=== PATIENT | female | born 1965 | race Caucasian/White ===

== ENCOUNTER 2017-02-04 08:56 | Emergency (ER) | payer BC ==
[2017-02-04] MEDS ORDERED: Aspirin Low Dose CHEW TAB* 81 MG PO ONE (10:27)
[2017-02-04] MEDS ORDERED: Nitroglycerin TAB 0.4 MG* 0.4 MG TAB SL ONE (10:28)
--- NOTE | 2017-02-04 10:34 | UC ---
Respiratory Complaint HPI - HPI Summary HPI Summary: 51 yo female awoke this AM about 2 with chest pressure and dyspnea Had had cough for about 4-5 days no f/c - History of Current Complaint Chief Complaint: UCRespiratory Stated Complaint: CHEST CONGESTION TROUBLE BREATHING Time Seen by Provider: 02/04/17 09:58 Hx Obtained From: Patient Hx Last Menstrual Period: 1999 Onset/Duration: Sudden Onset, Lasting Days Timing: Constant Severity Initially: Moderate Severity Currently: Moderate Pain Intensity: 6 Pain Scale Used: 0-10 Numeric Character: Cough: Nonproductive Associated Signs And Symptoms: Positive: Dyspnea. Negative: Fever, Chills, Pleuritic Chest Pain, Wheezing, Hemoptysis, Dizziness, Calf Pain, Calf Swelling , Edema, URI, Nasal Congestion, Hoarseness, Sinus Discomfort - Allergies/Home Medications Allergies/Adverse Reactions: Allergies Allergy/AdvReac Type Severity Reaction Status Date / Time Sulfa Drugs Allergy Intermediate Rash Verified 02/04/17 09:27 Indomethacin [From Indocin] Allergy MUSCLE Verified 02/04/17 09:27 FLAYLING Benadryl at large doses Allergy Swelling Uncoded 02/04/17 09:27 Of Face,Lips,& Throat Home Medications: Home Medications Dulaglutide [Trulicity] 0.75 mg SC WEEKLY 02/04/17 [History Confirmed 02/04/17] PMH/Surg Hx/FS Hx/Imm Hx Endocrine History Of: Reports: Diabetes, Thyroid Disease Cardiovascular History Of: Reports: Cardiac Disorders - irregular heartbeat, Hypertension - ON MEDICATION FOR - Surgical History Surgical History: Yes Surgery Procedure, Year, and Place: hysterectomy 1999, [facility] , gallbladder , 2009, [facility] , bladder repair, 2007, [facility] [place] , 1992, [facility] [place] , thyroidectomy 2009, [facility] . LefT wrist ~2009 , [facility] [place]. LEFT ANKLE SURGERY-09/02/2014. removed screw from left annkle 05/2015 - Family History Known Family History: Positive: Cardiac Disease, Hypertension, Diabetes - Social History Alcohol Use: None Alcohol Amount: 1 PER MONTH Substance Use Type: None Smoking Status (MU): Former Smoker Type: Cigarettes Amount Used/How Often: 1 PPD X 6-7 YEARS Have You Smoked in the Last Year: No When Did the Patient Quit Smoking/Using Tobacco: 1988 - Immunization History Most Recent Influenza Vaccination: NO Most Recent Pneumonia Vaccination: 2014 Review of Systems Constitutional: Negative Skin: Negative Eyes: Negative ENT: Negative Respiratory: Shortness Of Breath Cardiovascular: Chest Pain Gastrointestinal: Negative Genitourinary: Negative Motor: Negative Neurovascular: Negative Musculoskeletal: Negative Neurological: Negative Psychological: Negative All Other Systems Reviewed And Are Negative: Yes Physical Exam Triage Information Reviewed: Yes Appearance: Well-Appearing, No Pain Distress, Well-Nourished Vital Signs: Initial Vital Signs Temp 98.2 F 02/04/17 09:31 Pulse 78 02/04/17 09:31 Resp 24 02/04/17 09:31 BP 136/72 02/04/17 09:31 Pulse Ox 100 02/04/17 09:31 Eyes: Positive: Conjunctiva Clear ENT: Positive: Hearing grossly normal. Negative: Nasal congestion, Nasal drainage, Trismus, Muffled/hoarse voice Neck: Positive: Supple, Nontender, No Lymphadenopathy Respiratory: Positive: Chest non-tender, Lungs clear, Normal breath sounds, Other: - increased WOB Cardiovascular: Positive: RRR, No Murmur, Pulses Normal. Negative: Tachycardia , Bradycardia Abdomen Description: Positive: Nontender. Negative: Distended Bowel Sounds: Positive: Present Musculoskeletal: Positive: Edema @ - trace Psychological Exam: Normal Skin Exam: Normal UC Diagnostic Evaluation - Laboratory O2 Sat by Pulse Oximetry: 100 - normal/not hypoxic - EKG Cardiac Rate: NL Cardiac Rhythm: Sinus: Normal Ectopy: None ST Segment: Normal Respiratory Course/Dx - Course Course Of Treatment: D/W Clifford Dan (KINJAL). to [facility] via ems - Differential Dx/Diagnosis Provider Diagnoses: chest pain of uncertain cause Discharge - Discharge Plan Condition: Guarded Disposition: TRANS [facility] FAC
[2017-02-04 10:56] VITALS: BP 165/92
== END 2017-02-04 10:55 | disposition short-term general hospital (02) ==
LOC: UCCORT 08:56
DX: R07.89 Other chest pain (principal); R06.00 Dyspnea, unspecified; Z88.2 Allergy status to sulfonamides; E11.9 Type 2 diabetes mellitus without complications; E07.9 Disorder of thyroid, unspecified; I10 Essential (primary) hypertension; Z90.49 Acquired absence of other specified parts of digestive tract; Z90.710 Acquired absence of both cervix and uterus; E89.0 Postprocedural hypothyroidism; Z87.891 Personal history of nicotine dependence
CPT/HCPCS: 99213; 99214; A9270-GY; G0463

== ENCOUNTER 2017-09-05 07:26 | Emergency (ER) | payer BC ==
[2017-09-05 07:38] VITALS: BP 129/80
--- NOTE | 2017-09-05 08:01 | UC ---
Throat Pain/Nasal Slade HPI - HPI Summary HPI Summary: Pt c/o nasal congestion, sinus pressure and pain X 4 weeks. - History of Current Complaint Chief Complaint: UCGeneralIllness Stated Complaint: SINUSES Time Seen by Provider: 09/05/17 07:56 Hx Obtained From: Patient Hx Last Menstrual Period: 1999 ?: No Onset/Duration: Gradual Onset, Lasting Weeks - 4, Still Present, Worse Since - onset Severity: Mild Cough: Nonproductive Associated Signs & Symptoms: Positive: Sinus Discomfort - Epiglottits Risk Factors Epiglottis Risk Factors: Negative - Allergies/Home Medications Allergies/Adverse Reactions: Allergies Allergy/AdvReac Type Severity Reaction Status Date / Time Indomethacin [From Indocin] Allergy Severe See Comment Verified 09/05/17 07:34 Sulfa Drugs Allergy Intermediate Rash Verified 09/05/17 07:34 Benadryl at large doses Allergy Severe Swelling Uncoded 09/05/17 07:34 Of Face,Lips,& Throat PMH/Surg Hx/FS Hx/Imm Hx Previously Healthy: Yes - Surgical History Surgical History: Yes Surgery Procedure, Year, and Place: CSECTION- 1992- [facility] [place]. [place]STERECTOMY- [place]. BLADDER REPAIR- 2007- [facility] [place]. GALLBLADDER- 2009- [facility]. RIGHT THYROIDECTOMY- [place] . LEFT WRIST- ~2009- [facility] [place]. LEFT ANKLE SURGERY-09/02/2014- [facility] [place]. SCREW REMOVAL LEFT ANKLE- 05/2015- [facility] [place] - Family History Known Family History: Positive: Cardiac Disease, Hypertension, Diabetes - Social History Occupation: Employed Full-time Lives: With Family Alcohol Use: None Alcohol Amount: 1 PER MONTH Substance Use Type: None Smoking Status (MU): Former Smoker Type: Cigarettes Amount Used/How Often: 1/2 PPD FOR 5 YRS Length of Time of Smoking/Using Tobacco: 5 YRS Have You Smoked in the Last Year: No When Did the Patient Quit Smoking/Using Tobacco: 27 YRS AGO - Immunization History Most Recent Influenza Vaccination: June 2017 Most Recent Pneumonia Vaccination: 2014 Vaccination Up to Date: Yes Review of Systems Constitutional: Fatigue Skin: Negative Eyes: Negative ENT: Sore Throat, Sinus Congestion, Sinus Pain/Tenderness Respiratory: Cough Cardiovascular: Negative Gastrointestinal: Negative Genitourinary: Negative Motor: Negative Neurovascular: Negative Musculoskeletal: Negative Neurological: Headache Psychological: Negative Is Patient Immunocompromised?: No All Other Systems Reviewed And Are Negative: Yes Physical Exam Triage Information Reviewed: Yes Appearance: Ill-Appearing Vital Signs: Initial Vital Signs Temp 98.4 F 09/05/17 07:32 Pulse 76 09/05/17 07:32 Resp 16 09/05/17 07:32 BP 129/80 09/05/17 07:32 Pulse Ox 100 09/05/17 07:32 Vital Signs Reviewed: Yes Eye Exam: Normal ENT Exam: Other ENT: Positive: TM bulging, Sinus tenderness Dental Exam: Normal Neck exam: Normal Respiratory Exam: Normal Cardiovascular Exam: Normal Musculoskeletal Exam: Normal Neurological Exam: Normal Psychological Exam: Normal Skin Exam: Normal Throat Pain/Nasal Course/Dx - Differential Dx/Diagnosis Differential Diagnosis/HQI/PQRI: Influenza, Sinusitis, URI Provider Diagnoses: sinusitis Discharge - Discharge Plan Condition: Stable Disposition: HOME Prescriptions: Amoxicillin PO (*) [Amoxicillin 875 MG (*)] 875 mg PO Q12H #20 tab Fluconazole 100 MG TAB* [Diflucan 100 MG TAB*] 100 mg PO ONCE #2 tab Patient Education Materials: Sinusitis (ED) Referrals: Sharonda Trujillo MD [Primary Care Provider] - If Needed
== END 2017-09-05 08:07 | disposition home or self-care (01) ==
LOC: UCCORT 07:26
DX: J32.9 Chronic sinusitis, unspecified (principal); Z88.2 Allergy status to sulfonamides; Z87.891 Personal history of nicotine dependence
CPT/HCPCS: 99212; G0463

== ENCOUNTER 2018-09-13 16:54 | Emergency (ER) | payer BC ==
[2018-09-13 17:32] VITALS: BP 143/89
--- NOTE | 2018-09-13 17:41 | UC ---
General HPI - HPI Summary HPI Summary: Patient presents to urgent care with her . Patient with 2 concerns 1) patient reports progressive sinus congestion postnasal drip and dental achiness for the last 4-5 days. Patient states today at settled in her chest. Patient states she's been coughing intermittently productive. Patient does have some wheezing. Patient has shortness of breath except when she has coughing paroxysms. Patient denies nausea vomiting. Patient has taken over-the -counter cough medications with little improvement. Patient states she gets sinus infections once or twice a year and this feels similar. Patient without fevers, headache, ear pain 2) patient reports erythema and discomfort to the dorsum of her right foot. Patient states she's had it for approximately 8-10 days. Patient states she gets gout although she has not had it for more than 6 years. Patient states gout is typically in her first MTP. Patient states she has discomfort with movement of her foot. Patient states she has walking with a limp. Patient's been taking Motrin with little improvement. Patient states she does have plantar fasciitis of this right foot and so sometimes once anyway. Patient does not remember trauma specifically but states she is a little bit of a clot oftentimes strict stumbles and doesn't remember. Patient without any fevers or chills. Patient is a diabetic but does not require insulin. 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 Hx Last Menstrual Period: 1999 Onset/Duration: Gradual Onset Timing: Constant Onset Severity: Moderate Current Severity: Moderate Pain Intensity: 5 - Allergy/Home Medications Allergies/Adverse Reactions: Allergies Allergy/AdvReac Type Severity Reaction Status Date / Time indomethacin [From Indocin] Allergy Severe Muscle Ache Verified 09/13/18 17:24 diphenhydramine Allergy See Comment Verified 09/13/18 17:24 [From Benadryl] Sulfa (Sulfonamide Allergy Rash Verified 09/13/18 17:24 Antibiotics) Home Medications: Home Medications Empagliflozin [Jardiance] 1 tab DAILY 09/13/18 [History Confirmed 09/13/18] PMH/Surg Hx/FS Hx/Imm Hx Previously Healthy: Yes Endocrine History: Diabetes - no insulin - Surgical History Surgical History: Yes Surgery Procedure, Year, and Place: CSECTION- 1992- [facility] [place]. [place]STERECTOMY- [place]. BLADDER REPAIR- 2007- [facility] [place]. GALLBLADDER- 2009- [facility]. RIGHT THYROIDECTOMY- [place]. LEFT WRIST- ~2009- [facility] [place]. LEFT ANKLE SURGERY-- [facility] [place]. SCREW REMOVAL LEFT ANKLE- 05/2015- [facility] [place]. Oophorectomy--left ovary SEP 2017/right ovary JUL 2018 - Family History Known Family History: Positive: Cardiac Disease, Hypertension, Diabetes - Social History Lives: With Family Alcohol Use: Rare Alcohol Amount: 1 PER MONTH Substance Use Type: None Smoking Status (MU): Former Smoker Type: Cigarettes Amount Used/How Often: 1/2 PPD FOR 5 YRS Length of Time of Smoking/Using Tobacco: 5 YRS Have You Smoked in the Last Year: No When Did the Patient Quit Smoking/Using Tobacco: 27 YRS AGO - Immunization History Most Recent Influenza Vaccination: June 2017 Most Recent Pneumonia Vaccination: 2014 Vaccination Up to Date: Yes Review of Systems All Other Systems Reviewed And Are Negative: Yes Constitutional: Positive: Negative ENT: Positive: Nasal Discharge, Sinus Congestion, Sinus Pain/Tenderness Respiratory: Positive: Cough Motor: Positive: Other - right 2/3 toes Is Patient Immunocompromised?: Yes - DM - no insulin Physical Exam - Summary Physical Exam Summary: Vital Signs Reviewed: Yes A+Ox3, no distress, coarse cough, congested Eyes: Conjunctiva Clear, ABRIL. EOM intact and full ENT: Hearing grossly normal turbinates inflammed and boggy, + PND, + TTP max sinuses R>L, TM x 2 clear, mmoist, uvula midline, no exudate, no erythema Neck: Positive: Supple Respiratory: Positive: No respiratory distress, No accessory muscle use +BS throughout + exp wheeze, cough Cardiovascular: RRR nl s1, s2 no m/r CBT <2 sec abd soft + BS nt/nd no guarding, no distension Musculoskeletal Exam: BLACKMON x 4 without difficulty Strength Intact, ROM Intact Mild discomfort with passive extension right 2nd toe no pain with latearl joint movement Neurological: Positive: Alert, + sensation throughout Psychological: Positive: Normal Response To Family Skin: Positive: dorsum right foot - base 2nd and base of web 2/3 mild erythema, . no warmth. no open wound, no induration, no edema Triage Information Reviewed: Yes Vital Signs: Initial Vital Signs Temp 97.7 F 09/13/18 17:25 Pulse 81 09/13/18 17:25 Resp 18 09/13/18 17:25 BP 143/89 09/13/18 17:25 Pulse Ox 100 09/13/18 17:25 Diagnostics - Radiology No standard instances Radiology Interpretation Completed By: ED Physician - no acute process Re-Evaluation - Re-Evaluation First Eval Change: Improved - lungs clear, coughing improved following neb abx pred hydrate secretion precaution return precaution diflucan prn Pt has crutches post op shoe Course/Dx - Course Course Of Treatment: Patient presents to urgent care with 2 concerns. One patient states she's got congested sinuses for approximately 5 days of no further chest. Patient states she's got a history of sinusitis and this feels similar. On exam vital signs are stable. Patient with coarse intermittent cough. Patient sinuses are congested and boggy with thick postnasal drip. Patient with maxillary sinus discomfort on palpation. Patient also with expiratory wheezing and coarse cough. We'll give a DuoNeb and reassessed. If wheezing does not improve we'll give a DuoNeb. Anticipate antibiotics and possible prednisone. Patient comfortable in agreement with plan. Discussed with patient secretion precautions as well as humidified air. Patient also reporting discomfort for approximately 10 days to her right foot. Patient with erythema at the base of her second medicine tarsophalangeal joint. Patient with discomfort with range of motion. Mild erythema and edema. No red streaking. No induration. No open wounds. No concern sent for cellulitis. Differential includes tendinitis his patient, milligrams due to her plantar fasciitis versus gout. Patient's been taking Motrin. Anticipate we'll give patient prednisone for both her lungs as well as her foot. Patient to use crutches. Patient is a follow-up appointment tomorrow with her primary patient we'll check imaging make sure there is no bone chip. Patient comfortable in agreement with plan. BP mildly elevated- recommend PCP recheck - Diagnoses Provider Diagnosis: Rhinosinusitis, Toe pain, right Discharge - Sign-Out/Discharge Documenting (check all that apply): Patient Departure All imaging exams completed and their final reports reviewed: No - Discharge Plan Condition: Stable Disposition: HOME Prescriptions: Albuterol HFA INHALER* [Ventolin HFA Inhaler*] 1 puff INH Q4H PRN #1 mdi PRN Reason: wheeze Azithromycin TAB* [Zithromax TAB (Z-SARAH) 250 mg #6 tabs] 2 tab PO .TODAY, THEN 1 DAILY #1 sarah Inhaler, Assist Devices [Aerochamber Mv] 1 each PO Q4HR #1 spacer methylPREDNISolone [Medrol Dosepak 4 MG*] 1 mg PO .SEE SARAH INSTRUCTION #1 tab Patient Education Materials: Rhinosinusitis (ED), Tendinitis (ED) Referrals: Sharonda Trujillo MD [Primary Care Provider] - Additional Instructions: - Stay well hydrated. Drink plenty of non-alcoholic, non-caffinated beverages. - Alternate ibuprofen (Advil, Motrin) 600mg and Tylenol every 3 hours for pain or fever. Take with food. Do NOT take for more than 4-5 days. - These infections are spread by secretions - do NOT share eating or drinking utensils - clean items you share with other people such as cell phones, computer mouse, TV remote, computer tablets,etc. nce you have been antibiotics for 2 days, change your toothbrush and your pillowcase. - Use inhaler, 2 puffs every 4 hours today and tomorrow, then every 4hour as needed - take prednisone as prescribed until gone - this will cause your blood sugars to go up - this is normal - get plenty of restful sleep - humidify the air in the room where you sleep - boil water, run a hot steam shower, vaporizer, cups of water by heat register - okay to take over the counter decongestant and cough medication - contact your doctor or return with questions or concerns for your foot: - take pain medication as outlined above - elevate your foot to help with swelling and pain - prednisone should help with your discomfort - keep your appointment as scheduled with your primary doctor tomorrow - use crutches until you can walk normally without a limp - Billing Disposition and Condition Condition: STABLE Disposition: Home
[2018-09-13] MEDS ORDERED: Albuterol/Ipratropium NEB.SOL* Albuterol 2.5 MG/Ipratropium 0.5 MG 3 ML INH ONE (17:54)
--- NOTE | 2018-09-14 08:01 | UC ---
- Progress Note Progress Note: Patient Name: ANNETTE SANDERSON Medical Record#: [id number] Ordering Physician: Jami Alvares MD Acct.#: [id number] : 1965 Age: 52 Sex: F Location: [facility] Exam Date: 09/13/181753 ADM Status: DEP ER Order Information: FOOT RIGHT 3+ VWS Accession Number: [id number] CPT: 46531 Indication: Pain. Erythema at the base of the second and third toes. Soft tissue swelling. History of gout. Comparison: February 15, 2018 Technique: AP, lateral, and oblique views RIGHT foot. Report: Negative for fracture or malalignment. 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 Negative for osseous erosions or soft tissue calcifications. Normal variant bipartite sesamoid at the medial flexor hallucis brevis. Small heel spurs. Mild diffuse soft tissue swelling about the forefoot. IMPRESSION: #. Mild diffuse soft tissue swelling about the forefoot and mild osteoarthritis at the first metatarsal phalangeal joint. No compelling evidence for crystal deposition disease or inflammatory arthropathy. R0 Preliminary Imaging Read R0 <Electronically signed by Marquez Weiss MD in OV> 09/14/18641 Dictated By: Marquez Weiss MD Dictated Date/Time: 09/14/18641 Transcribed Date/Time: 09/14/18639 Copy to: CC:Sharonda Trujillo MD; Jami Alvares MD Imaging - [facility] Imaging - [facility] [address] [place] [address] ph ([phone]) ph ([phone]) ph ([phone]) This report is only to be considered final once signed by the Provider(s) as displayed in the "<Electronically Signed by >" field (s). Absence of a signature indicates the report is in a draft status and still needs to be finalized. In the event this document was created by someone other than the signing Provider, the individual initiating the document will be listed in the "Entered by:" or "Dictated by:" hwang. 1 of 1 Re-Evaluation - Re-Evaluation First Eval Change: Improved - lungs clear, coughing improved following neb abx pred hydrate secretion precaution return precaution diflucan prn Pt has crutches post op shoe Course/Dx - Diagnoses Provider Diagnoses: Rhinosinusitis, Toe pain, right Discharge - Sign-Out/Discharge Documenting (check all that apply): Post-Discharge Follow Up All imaging exams completed and their final reports reviewed: Yes - Discharge Plan Condition: Stable Disposition: HOME Prescriptions: Albuterol HFA INHALER* [Ventolin HFA Inhaler*] 1 puff INH Q4H PRN #1 mdi PRN Reason: wheeze Azithromycin TAB* [Zithromax TAB (Z-SARAH) 250 mg #6 tabs] 2 tab PO .TODAY, THEN 1 DAILY #1 sarah Fluconazole [Diflucan 150 MG (NF)] 150 mg PO ONCE PRN #1 tab PRN Reason: vaginal yeast infection Inhaler, Assist Devices [Aerochamber Mv] 1 each PO Q4HR #1 spacer methylPREDNISolone [Medrol Dosepak 4 MG*] 1 mg PO .SEE SARAH INSTRUCTION #1 tab Patient Education Materials: Rhinosinusitis (ED), Tendinitis (ED) Referrals: Sharonda Trujillo MD [Primary Care Provider] - Additional Instructions: - Stay well hydrated. Drink plenty of non-alcoholic, non-caffinated beverages. - Alternate ibuprofen (Advil, Motrin) 600mg and Tylenol every 3 hours for pain or fever. Take with food. Do NOT take for more than 4-5 days. - These infections are spread by secretions - do NOT share eating or drinking utensils - clean items you share with other people such as cell phones, computer mouse, TV remote, computer tablets,etc. nce you have been antibiotics for 2 days, change your toothbrush and your pillowcase. - Use inhaler, 2 puffs every 4 hours today and tomorrow, then every 4hour as needed - take prednisone as prescribed until gone - this will cause your blood sugars to go up - this is normal - get plenty of restful sleep - humidify the air in the room where you sleep - boil water, run a hot steam shower, vaporizer, cups of water by heat register - okay to take over the counter decongestant and cough medication - contact your doctor or return with questions or concerns for your foot: - take pain medication as outlined above - elevate your foot to help with swelling and pain - prednisone should help with your discomfort - keep your appointment as scheduled with your primary doctor tomorrow - use crutches until you can walk normally without a limp - Billing Disposition and Condition Condition: STABLE Disposition: Home
== END 2018-09-13 19:04 | disposition home or self-care (01) ==
LOC: UCCORT 16:54
DX: J32.9 Chronic sinusitis, unspecified (principal); M79.674 Pain in right toe(s); Z88.8 Allergy status to other drugs, medicaments and biological substances; Z88.2 Allergy status to sulfonamides; E11.9 Type 2 diabetes mellitus without complications; Z87.891 Personal history of nicotine dependence
CPT/HCPCS: 99213; A9270-GY; G0463